=== PATIENT | male | born 1995 | race African-American/Black ===

== ENCOUNTER 2017-01-24 00:59 | Emergency (ER) | payer OTHER ==
[~2017-01-24] VITALS: Ht 177.8 cm; Wt 72.0 kg
[~2017-01-24 00:59] MED LIST: Z.0.NO CURRENT MEDS
[2017-01-24 01:02] VITALS: BP 126/70; PULSE 66; RESP 14; TEMP 97.6; O2SAT 98
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
[2017-01-24] MEDS ORDERED: IBUPROFEN 600 MG TAB PO ONE (03:45)
[2017-01-24] MEDS ORDERED: CYCL1TAB29 PO (03:45)
[2017-01-24] MEDS ORDERED: CYCLOBENZAPRINE HCL 10 MG TAB PO ONE (03:45)
[2017-01-24] MEDS ORDERED: IBUP800T23 PO (03:45)
== END 2017-01-24 04:03 | disposition home or self-care (01) ==
LOC: NEPB 00:59
DX: S09.90XA Unspecified injury of head, initial encounter (principal); M79.662 Pain in left lower leg; J32.9 Chronic sinusitis, unspecified; V43.62XA Car passenger injured in collision with other type car in traffic accident, initial encounter; Y93.9 Activity, unspecified; Y92.9 Unspecified place or not applicable
CPT/HCPCS: 70450; 73590; 99284; E0113